=== PATIENT | male | born 2000 | race Caucasian/White ===

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

== ENCOUNTER → 2020-02-19 | Outpatient (CLI) | payer OTHER | LOC: COL.PUL 09:53 | DX: R06.02 Shortness of breath (principal) | CPT/HCPCS: J7674 ==

== ENCOUNTER → 2020-03-10 | Outpatient (CLI) | payer OTHER | LOC: COL.RAD 14:19 | DX: M25.511 Pain in right shoulder (principal) | CPT/HCPCS: A9585; Q9967 ==